=== PATIENT | male | born 1985 | race Caucasian/White ===

== ENCOUNTER 2017-01-04 20:36 | Emergency (ER) | payer MEDICAID, OTHER ==
[~2017-01-04] VITALS: Ht 165.1 cm; Wt 78.0 kg
[2017-01-04 20:40] VITALS: Ht 165.1 cm; Wt 78.0 kg
[2017-01-04] MEDS ORDERED: IPRATROPIUM (NEB) 0.5 MG/2.5 ML AMP NEB STA ×2 (21:25→23:42)
[2017-01-04] MEDS ORDERED: ALBUTEROL 0.083% (NEB) 2.5 MG/3 ML AMP NEB STA ×2 (21:25→23:42)
--- NOTE | 2017-01-04 21:42 | ERD ---
ER Documentation Chief Complaint Date/Time DATE: 01/04/17 TIME: 21:32 Chief Complaint SOB AND WHEEZING AND COUGH HPI 31-year-old male presents to emergency department for complaints of cough shortness of breath and wheezing that started 4 days ago. Patient has been having dry cough, does not cough up any phlegm or blood. Patient has been having on and off wheezing. Patient did not take any medications to help with symptoms. ROS All systems reviewed and are negative except as per history of present illness. Medications Home Meds Active Scripts Cetirizine Hcl* (Zyrtec*) 10 Mg Capsule, 10 MG PO DAILY, #30 TAB.CHEW Prov:TENZIN LOYA NP 01/04/17 Bjokxlvpohd-X-Blhbqtengq Hb* (Guaifenesin* DM Syrup) 120 Ml Syrup, 10 ML PO Q4H Y for COUGH, #120 ML Prov:TENZIN LOYA NP 01/04/17 Albuterol Sulfate* (Proair HFA*) 8.5 Gm Hfa.aer.ad, 2 PUFF INH Q4H Y for WHEEZING AND SOB, #1 INHALER Prov:TENZIN LOYA NP 01/04/17 Reported Medications [none] Unknown Strength No Conflict Check 01/04/17 Allergies Allergies: Coded Allergies: No Known Allergy (Unverified , 01/04/17) PMhx/Soc Medical and Surgical Hx: pt denies Medical Hx, pt denies Surgical Hx Hx Alcohol Use: No Hx Substance Use: No Hx Tobacco Use: No Smoking Status: Never smoker FmHx Family History: No coronary disease, No diabetes, No other Physical Exam Vitals Vital Signs Date Time Temp Pulse Resp B/P Pulse Ox O2 Delivery O2 Flow Rate FiO2 01/05/17 01:03 110 20 125/95 98 Room Air 01/05/17 00:41 89 18 95 21 01/04/17 21:48 87 18 92 21 01/04/17 20:40 98.2 96 25 131/85 95 Physical Exam GENERAL: The patient is well developed and appropriate for usual state of health, in no apparent distress. CHEST: Diffuse wheezing bilaterally. There are no rales, or rhonchi. HEART: Regular rate and rhythm. No murmurs, clicks, rubs or gallops. No S3 or S4. ABDOMEN: Soft, nontender and nondistended. Good bowel sounds. No rebound or guarding. No gross peritonitis. No gross organomegaly or masses. No Ruiz sign or McBurney point tenderness. BACK: No midline or flank tenderness. EXTREMITIES: Equal pulses bilaterally. There is no peripheral clubbing, cyanosis or edema. No focal swelling or erythema. Full range of motion. Grossly neurovascularly intact. NEURO: Alert and oriented. Cranial nerves 2-12 intact. Motor strength in all 4 extremities with 5/5 strength. Sensation grossly intact. Normal speech and gait. SKIN: There is no apparent rash or petechia. The skin is warm and dry. HEMATOLOGIC AND LYMPHATIC: There is no evidence of excessive bruising or lymphedema. No gross cervical, axillary, or inguinal lymphadenopathy. Results 24 hrs Current Medications Medications (Trade) Dose Ordered Sig/Cara Route PRN Reason Start Time Stop Time Status Last Admin Dose Admin Albuterol (Proventil 0.083% (Neb)) 5 mg ONCE STAT NEB 01/04/17 21:25 01/04/17 21:26 DC 01/04/17 21:46 Ipratropium Stites (Atrovent 0.02% (Neb)) 0.5 mg ONCE STAT NEB 01/04/17 21:25 01/04/17 21:26 DC 01/04/17 21:46 Albuterol (Proventil 0.083% (Neb)) 5 mg ONCE STAT NEB 01/04/17 23:42 01/04/17 23:44 DC 01/05/17 00:31 Ipratropium Stites (Atrovent 0.02% (Neb)) 0.5 mg ONCE STAT NEB 01/04/17 23:42 01/04/17 23:44 DC 01/05/17 00:32 Breathing treatment of albuterol and Atrovent was given here in emergency department, after treatment, patient's lungs sounds are clear and patient's oxygenation is better. Patient verbalized feeling much better. PROCEDURE: XR Chest. CLINICAL INDICATION: Asthma exacerbation. TECHNIQUE: Single frontal view of the chest was obtained. COMPARISON: None FINDINGS: The soft tissues are normal. The bony elements are normal. The heart, cardiomediastinal silhouette and hilar structures are normal. The pulmonary vasculature is normal. There is a left-sided aorta. The lungs are clear. The costophrenic angles are normal. IMPRESSION: 1. Normal chest x-ray. No acute infiltrate is identified. RPTAT:AAJJ Khurram Beavers Physician Date Time Electronically viewed and signed by Khurram Beavers Physician on 01/04/2017 22:57 JM/ Procedures/MDM Medical Decision Making: Patient symptoms are most likely consistent with acute bronchitis, which viral in origin. There is low suspicion for Pneumonia at this time since patients lungs sounds are clear, patient O2 saturation is normal and patient doesnt show any respiratory distress. Patients chest xray doesnt show infiltrates or any other cardiopulmonary emergencies at this time. There is low suspicion for other cardiopulmonary emergencies at this time such as CHF, Pulmonary Embolism, Pneumothorax, Aortic Aneurysm or any other cardiopulmonary emergencies at this time. There is low suspicion for sepsis. Patient appears well and is hemodynamically stable. Fever is controlled with medicines. Disposition: Home. Condition: Stable Prescriptions: Zyrtec guaifenesin DM albuterol Instructions: Patient is advised to take medications as prescribed. Patient is advised to rest. Patient advised to increase fluid intake, do humidifier at home and if possible, do salt water gargles. Patient is advised that if symptoms are worse, shortness of breath, uncontrolled fever, stridor, vomiting, worst signs and symptoms to return to emergency department immediately. Otherwise, patient is advised to follow up with primary doctor in 5-7 days. Disclaimer: Inadvertent spelling and grammatical errors are likely due to EHR/ dictation software use and do not reflect on the overall quality of patient care. Also, please note that the electronic time recorded on this note does not necessarily reflect the actual time of the patient encounter. Departure Diagnosis: Primary Impression: Acute bronchitis Bronchitis organism: unspecified organism Qualified Code: J20.9 - Acute bronchitis, unspecified organism Condition: Stable Patient Instructions: Bronchitis With Wheezing (Adult) TENZIN LOYA NP Jan 04, 2017 21:42
--- NOTE | 2017-01-04 22:57 | RADRPT ---
PROCEDURE: XR Chest. CLINICAL INDICATION: Asthma exacerbation. TECHNIQUE: Single frontal view of the chest was obtained. COMPARISON: None FINDINGS: The soft tissues are normal. The bony elements are normal. The heart, cardiomediastinal silhouette and hilar structures are normal. The pulmonary vasculature is normal. There is a left-sided aorta. The lungs are clear. The costophrenic angles are normal. IMPRESSION: 1. Normal chest x-ray. No acute infiltrate is identified. RPTAT:AAJJ Physician Koby Date Time Electronically viewed and signed by Khurram Beavers Physician on 01/04/2017 22:57 OLIVIER/
[2017-01-04] MEDS ORDERED: GUAI120S26 PO (23:27)
[2017-01-04] MEDS ORDERED: CETI10CA PO (23:27)
[2017-01-04] MEDS ORDERED: ALBU8.5H3 INH (23:27)
[2017-01-05 01:03] VITALS: BP 125/95; PULSE 110; RESP 20
== END 2017-01-05 01:05 | disposition home or self-care (01) ==
LOC: FTE 20:36
DX: J20.9 Acute bronchitis, unspecified (principal)
CPT/HCPCS: 71010; 94640; 94664; Z7502; Z7610

== ENCOUNTER 2017-05-17 20:22 | Emergency (ER) | END 2017-05-18 01:47 | disposition home or self-care (01) ==